=== PATIENT | female | born 1965 | race African-American/Black ===

== ENCOUNTER 2018-04-24 12:37 | Observation (INO) | payer OTHER ==
[2018-04-24] MEDS ORDERED: ASPIRIN 81 MG TABLET, CHEWABLE PO ONE (13:07)
--- NOTE | 2018-04-24 13:31 | RADIOLOGY REPORT (SQ) ---
EXAM DESCRIPTION: CHEST 2 VIEWS COMPLETED DATE/TIME: 04/24/2018 1:22 pm REASON FOR STUDY: Chest pain COMPARISON: None. EXAM PARAMETERS: NUMBER OF VIEWS: two views TECHNIQUE: Digital Frontal and Lateral radiographic views of the chest acquired. RADIATION DOSE: NA LIMITATIONS: none FINDINGS: LUNGS AND PLEURA: No opacities, masses or pneumothorax. No pleural effusion. MEDIASTINUM AND HILAR STRUCTURES: No masses or contour abnormalities. HEART AND VASCULAR STRUCTURES: Heart normal size. No evidence for failure. BONES: No acute findings. HARDWARE: None in the chest. OTHER: No other significant finding. IMPRESSION: NO ACUTE RADIOGRAPHIC FINDING IN THE CHEST. TECHNICAL DOCUMENTATION: JOB ID: [id number] [employer]- All Rights Reserved Reading location - IP/workstation name: [email or web address]
[2018-04-24 13:39] LABS: ABSOLUTE BASOPHILS # (AUTO) 0.1 10^3/uL (0.0-0.2); ABSOLUTE EOSINOPHILS # (AUTO) 0.1 10^3/uL (0.0-0.6); ABSOLUTE LYMPHOCYTES (AUTO) 2.6 10^3/uL (0.5-4.7); ABSOLUTE MONOCYTES (AUTO) 0.5 10^3/uL (0.1-1.4); ABSOLUTE NEUT (AUTO) 4.4 10^3/uL (1.7-8.2); EOSINOPHILS % (AUTO) 1.9 % (0-6); HEMATOCRIT 37.7 % (36.0-47.0); LYMPHOCYTES % (AUTO) 33.4 % (13-45); MEAN CORPUSCULAR HEMOGLOBIN 28.5 pg (27.0-33.4); MEAN CORPUSCULAR HGB CONC 34.4 g/dL (32.0-36.0); MEAN CORPUSCULAR VOLUME 83 fl (80-97); MONOCYTES % (AUTO) 6.2 % (3-13); PLATELET COUNT 250 10^3/uL (150-450); RED BLOOD COUNT 4.55 10^6/uL (3.72-5.28); RED CELL DISTRIBUTION WIDTH 13.4 % (11.5-14.0); SEGMENTED NEUTROPHILS % (AUTO) 57.5 % (42-78); TOTAL CELLS COUNTED % (AUTO) 100 %; WHITE BLOOD COUNT 7.6 10^3/uL (4.0-10.5)
[2018-04-24 14:02] LABS: ALANINE AMINOTRANSFERASE 26 U/L (9-52); ALBUMIN 4.5 g/dL (3.5-5.0); ALKALINE PHOSPHATASE 66 U/L (38-126); ANION GAP 9 (5-19); ASPARTATE AMINO TRANSFERASE 22 U/L (14-36); BILIRUBIN,DIRECT 0.1 mg/dL (0.0-0.4); BILIRUBIN,TOTAL 0.5 mg/dL (0.2-1.3); BLOOD UREA NITROGEN 14 mg/dL (7-20); CALCIUM 10.7 mg/dL (8.4-10.2); CARBON DIOXIDE 30 mmol/L (22-30); CHLORIDE 101 mmol/L (98-107); CREATINE KINASE 99 U/L (30-135); GLUCOSE 111 mg/dL (75-110); POTASSIUM 3.7 mmol/L (3.6-5.0); SODIUM 139.5 mmol/L (137-145); TOTAL PROTEIN 7.5 g/dL (6.3-8.2)
[2018-04-24 14:14] LABS: CREATINE KINASE MB 1.29 ng/mL (<4.55)
[2018-04-24 14:18] LABS: TROPONIN I < 0.012 ng/mL
[2018-04-24] MEDS ORDERED: NITROGLYCERIN 5 MG (0.2 MG/HR) PATCH.TD24 TD ONE (15:46)
--- NOTE | 2018-04-24 15:53 | ER Document Report ---
ED Cardiac - General Chief Complaint: Chest Pain Stated Complaint: CHEST PAIN Time Seen by Provider: 04/24/18 12:54 Mode of Arrival: Ambulatory Information source: Patient TRAVEL OUTSIDE OF THE [place] IN LAST 30 DAYS: No - HPI Patient complains to provider of: Chest pain, Shortness of breath Was the onset of pain: Gradual Is the pain a: New problem Chest pain location: Substernal, Under breast - left breast Quality of pain: Achy, Dull Chest pain radiation location: Left arm, Left shoulder, Back, Neck - left neck Severity now: Moderate Severity at worst: Severe Pain level currently: 2 Chest pain precipitating factors: None Cardiac risk factors: None Positive cardiac history: No Associated symptoms: Shortness of breath Exacerbated by: Denies Relieved by: Nothing Similar symptoms previously: No Recently seen / treated by doctor: No - Related Data Allergies/Adverse Reactions: Sulfa (Sulfonamide Antibiotics) Adverse Reaction (Verified 04/24/18 12:59) Past Medical History - Social History Smoking Status: Never Smoker Frequency of alcohol use: None Drug Abuse: None Family History: Reviewed & Not Pertinent Patient has suicidal ideation: No Patient has homicidal ideation: No Renal/ Medical History: Denies: Hx Peritoneal Dialysis Past Surgical History: Reports: Hx Cholecystectomy, Hx Hysterectomy Review of Systems - Review of Systems Constitutional: No symptoms reported EENT: No symptoms reported Cardiovascular: Chest pain Respiratory: Short of breath Gastrointestinal: No symptoms reported Genitourinary: No symptoms reported Female Genitourinary: No symptoms reported Musculoskeletal: No symptoms reported Skin: No symptoms reported Hematologic/Lymphatic: No symptoms reported Neurological/Psychological: No symptoms reported -: Yes All other systems reviewed and negative Physical Exam - Vital signs Vitals: Temp Pulse BP Pulse Ox 97.8 F 71 164/90 H 100 04/24/18 12:50 04/24/18 12:50 04/24/18 12:50 04/24/18 12:50 Interpretation: Normal - General General appearance: Appears well, Alert, Other - Obese In distress: None - HEENT Head: Normocephalic, Atraumatic Eyes: Normal Pupils: PERRL - Respiratory Respiratory status: No respiratory distress Chest status: Nontender Breath sounds: Normal Chest palpation: Normal - Cardiovascular Rhythm: Regular Heart sounds: Normal auscultation Murmur: No - Abdominal Inspection: Normal Distension: No distension Bowel sounds: Normal Tenderness: Nontender Organomegaly: No organomegaly - Back Back: Normal, Nontender - Extremities General upper extremity: Normal inspection, Nontender, Normal color, Normal ROM, Normal temperature General lower extremity: Normal inspection, Nontender, Normal color, Normal ROM, Normal temperature, Normal weight bearing. No: Cheryl's sign - Neurological Neuro grossly intact: Yes Cognition: Normal Orientation: AAOx4 Mohsen Coma Scale Eye Opening: Spontaneous Mohsen Coma Scale Verbal: Oriented Stanley Coma Scale Motor: Obeys Commands Stanley Coma Scale Total: 15 Speech: Normal Motor strength normal: LUE, RUE, LLE, RLE Sensory: Normal - Psychological Associated symptoms: Normal affect, Normal mood - Skin Skin Temperature: Warm Skin Moisture: Dry Skin Color: Normal Course - Vital Signs Vital signs: Temp Pulse Resp BP Pulse Ox 98.7 F 71 16 132/77 H 100 04/24/18 18:51 04/24/18 12:50 04/24/18 20:01 04/24/18 20:01 04/24/18 20:01 - Laboratory Result Diagrams: 04/24/18 13:10 04/24/18 13:10 Laboratory results interpreted by me: 04/24/18 13:10 Glucose 111 H Calcium 10.7 H - Diagnostic Test Radiology reviewed: Reports reviewed - EKG Interpretation by De EKG shows normal: Sinus rhythm Rate: Normal - 63 Rhythm: NSR When compared to previous EKG there are: Previous EKG unavailable Additional EKG results interpreted by me: 04/24/18 15:50 Diffused nonspecific T wave abnormalities. No STEMI. - Transfer of Care Notes: 04/24/18 17:55 Patient was admitted by Dr. Hoffman for further management in the hospital. Discharge - Discharge Clinical Impression: Chest pain Qualifiers: Chest pain type: unspecified Qualified Code(s): R07.9 - Chest pain, unspecified Condition: Stable Disposition: ADMITTED INPATIENT Admitting Provider: Hospitalist Unit Admitted: Telemetry
[2018-04-24 15:56] LABS: INTERNATIONAL RATION (INR) 0.89; PARTIAL THROMBOPLASTIN TIME 29.7 SEC (23.5-35.8); PROTHROMBIN TIME 12.5 SEC (11.4-15.4)
--- NOTE | 2018-04-24 18:00 | EKG REPORT ---
SEVERITY:- BORDERLINE ECG - SINUS RHYTHM BORDERLINE T ABNORMALITIES, INFERIOR LEADS : Confirmed by: Corey Foreman MD 24-Apr-2018 17:59:38
[2018-04-24] MEDS ORDERED: ONDANSETRON HCL INJ/PF 4 MG/2 ML SDV IV PRN (18:23)
[2018-04-24] MEDS ORDERED: ACETAMINOPHEN 325 MG TABLET PO PRN (18:23)
[2018-04-24] MEDS ORDERED: MORPHINE SULFATE 10 MG/ML INJ IV PRN (18:31)
--- NOTE | 2018-04-24 18:52 | PDOC H&P ---
History of Present Illness Admission Date/PCP: 04/24/18 18:10 Patient complains of: Chest pain History of Present Illness: FIFI BARTH is a 52 year old female with history of obesity no other medical problems came to the emergency room with complaints of left-sided chest pain for the last 4 days. She is basically complaining of pain in her armpit gotten worse today when she came to the emergency room it was 10 x 10 at the time of examination she is single 7 x 10. She is also complaining of numbness of the left hand. According to her chest pain is like a pressure-like pain associated with mild shortness of breath and mild wheezing. Denies any headaches denies any dizzy spells. Denies any previous history of chest pains. in the emergency room to troponins came back negative. EKG negative for acute changes in the ER Past Medical History Cardiac Medical History: Reports: None Pulmonary Medical History: Reports: None EENT Medical History: Reports: None Neurological Medical History: Reports: None Endocrine Medical History: Reports: None Renal/ Medical History: Reports: None Malignancy Medical History: Reports: None GI Medical History: Reports: None Musculoskeltal Medical History: Reports: None Skin Medical History: Reports: None Psychiatric Medical History: Reports: None Traumatic Medical History: Reports: None Hematology: Reports: None Infectious Medical History: Reports: None Past Surgical History Past Surgical History: Reports: Cholecystectomy, Hysterectomy Social History Smoking Status: Never Smoker Frequency of Alcohol Use: Social Hx Recreational Drug Use: No Drugs: None - Advance Directive Resuscitation Status: Full Code Family History Parental Family History Reviewed: Yes - Mother lung cancer grandmother hypertension diabetes Children Family History Reviewed: Yes Sibling(s) Family History Reviewed.: Yes Medication/Allergy Home Medications: No Home Medications 04/24/18 Allergies/Adverse Reactions: Sulfa (Sulfonamide Antibiotics) Adverse Reaction (Verified 04/24/18 12:59) Review of Systems Constitutional: PRESENT: weakness. ABSENT: chills, fatigue, fever(s), headache(s) Eyes: ABSENT: visual disturbances Ears: ABSENT: hearing changes Nose, Mouth, and Throat: ABSENT: sore throat Cardiovascular: PRESENT: chest pain. ABSENT: dyspnea on exertion, edema, orthropnea, palpitations Respiratory: PRESENT: dyspnea. ABSENT: hemoptysis Gastrointestinal: ABSENT: diarrhea, dysphagia, heartburn, melena, nausea, vomiting Genitourinary: ABSENT: dysuria Musculoskeletal: ABSENT: joint swelling Integumentary: ABSENT: rash, wounds Neurological: PRESENT: other - Complaining of numbness in the left hand Psychiatric: ABSENT: anxiety, depression, homidical ideation, suicidal ideation Physical Exam Vital Signs: Temp Pulse Resp BP Pulse Ox 97.8 F 71 14 136/89 H 100 04/24/18 12:50 04/24/18 12:50 04/24/18 18:01 04/24/18 18:01 04/24/18 18:01 Intake & Output 04/23/18 04/24/18 04/25/18 06:59 06:59 06:59 Weight 99 kg General appearance: PRESENT: no acute distress, obese Head exam: PRESENT: atraumatic Eye exam: PRESENT: PERRLA Mouth exam: PRESENT: moist, tongue midline Teeth exam: PRESENT: poor dentation Neck exam: ABSENT: carotid bruit, JVD, lymphadenopathy, thyromegaly Respiratory exam: PRESENT: clear to auscultation ramirez. ABSENT: rales, rhonchi, wheezes Cardiovascular exam: PRESENT: RRR. ABSENT: diastolic murmur, rubs, systolic murmur GI/Abdominal exam: PRESENT: normal bowel sounds, soft. ABSENT: distended, guarding, mass, organolmegaly, rebound, tenderness Extremities exam: PRESENT: full ROM. ABSENT: calf tenderness, clubbing, pedal edema Neurological exam: PRESENT: alert, awake, oriented to person, oriented to place, oriented to time, oriented to situation, CN II-XII grossly intact. ABSENT: motor sensory deficit Psychiatric exam: PRESENT: appropriate affect, normal mood. ABSENT: homicidal ideation, suicidal ideation Results Laboratory Results: 04/24/18 13:10 04/24/18 13:10 04/24/18 04/24/18 13:10 13:10 WBC 7.6 RBC 4.55 Hgb 13.0 Hct 37.7 MCV 83 MCH 28.5 MCHC 34.4 RDW 13.4 Plt Count 250 Seg Neutrophils % 57.5 Lymphocytes % 33.4 Monocytes % 6.2 Eosinophils % 1.9 Basophils % 1.0 Absolute Neutrophils 4.4 Absolute Lymphocytes 2.6 Absolute Monocytes 0.5 Absolute Eosinophils 0.1 Absolute Basophils 0.1 Sodium 139.5 Potassium 3.7 Chloride 101 Carbon Dioxide 30 Anion Gap 9 BUN 14 Creatinine 0.59 Est GFR ( Amer) > 60 Est GFR (Non-Af Amer) > 60 Glucose 111 H Calcium 10.7 H Total Bilirubin 0.5 AST 22 ALT 26 Alkaline Phosphatase 66 Total Protein 7.5 Albumin 4.5 04/24/18 04/24/18 04/24/18 13:10 13:10 16:39 Creatine Kinase 99 CK-MB (CK-2) 1.29 Troponin I < 0.012 < 0.012 Impressions: Chest X-Ray 04/24/18 13:08 IMPRESSION: NO ACUTE RADIOGRAPHIC FINDING IN THE CHEST. Assessment & Plan - Diagnosis (1) Chest pain Qualifiers: Chest pain type: unspecified Qualified Code(s): R07.9 - Chest pain, unspecified Is this a current diagnosis for this admission?: Yes Plan: 04/24/2018-plan to put the patient in telemetry under observation stress test was requested for tomorrow. Started on aspirin 3-5 mg p.o. daily atorvastatin 20 mg p.o. nightly, cardiac enzymes x3 requested. Lipid panel was requested for tomorrow morning. Placed on oxygen 2 L nasal cannula also start her on IV morphine 2 mg every 4 as needed for chest pains. She is going to be on DVT prophylaxis with Lovenox 40 mg subcu daily. For the chest pain plan to do the CT of the chest rule out PE. (2) Obesity (BMI 30-39.9) Is this a current diagnosis for this admission?: Yes Plan: 04/24/2018-patient's BMI is more than 40 diet exercise weight loss lifestyle modifications are discussed with the patient. Dietary consult was requested. - Time Time Spent: 50 to 70 Minutes Medications reviewed and adjusted accordingly: Yes Anticipated discharge: Home
--- NOTE | 2018-04-24 19:30 | EKG REPORT ---
SEVERITY:- ABNORMAL ECG - SINUS RHYTHM NONSPECIFIC T ABNORMALITIES, DIFFUSE LEADS : Confirmed by: Corey Foreman MD 24-Apr-2018 19:29:52
[2018-04-24 20:06] LABS: CREATINE KINASE MB 1.09 ng/mL (<4.55)
[2018-04-24 20:15] LABS: TROPONIN I < 0.012 ng/mL
--- NOTE | 2018-04-24 20:47 | RADIOLOGY REPORT (SQ) ---
CT HEAD WITHOUT IV CONTRAST HISTORY: Numbness. COMPARISON: None. TECHNIQUE: CT scan of the brain without IV contrast. This exam was performed according to our departmental dose-optimization program, which includes automated exposure control, adjustment of the mA and/or kV according to patient size and/or use of iterative reconstruction technique. FINDINGS: The ventricles, cisterns, and sulci are unremarkable. No focal white matter lesions are seen. No evidence of acute infarction, intracranial hemorrhage, extra-axial fluid collection, or midline shift. No air-fluid levels are seen in the paranasal sinuses to suggest acute sinusitis. No depressed skull fracture. IMPRESSION: No acute intracranial findings.
--- NOTE | 2018-04-24 20:57 | RADIOLOGY REPORT (SQ) ---
CT CHEST ANGIOGRAPHY WITHOUT THEN WITH IV CONTRAST HISTORY: Shortness of breath. COMPARISON: None. TECHNIQUE: CT angiogram of the chest with IV contrast. 3-D MIP images were obtained in coronal and sagittal reconstructions. This exam was performed according to our departmental dose-optimization program, which includes automated exposure control, adjustment of the mA and/or kV according to patient size and/or use of iterative reconstruction technique. FINDINGS: No filling defects are identified in the pulmonary trunk, main left and right pulmonary arteries, or the segmental branches. No aortic aneurysm or dissection is seen. The thyroid gland is normal. No mediastinal or hilar adenopathy. The heart size is normal without pericardial effusion. No consolidation, pleural effusion, or pneumothorax is identified. The visualized upper abdomen demonstrates a small hiatal hernia but no acute findings. The osseous structures are intact. IMPRESSION: No acute pulmonary embolism.
[2018-04-24] MEDS ORDERED: ATORVASTATIN CALCIUM 20 MG TABLET PO SCH (22:00)
[2018-04-24] MEDS: FAMOTIDINE 20 MG TABLET PO SCH (22:36)
[2018-04-24] MEDS: OXYCODONE-ACETAMINOPHEN 5-325 MG TABLET PO PRN (22:39)
[2018-04-25 02:10] LABS: CREATINE KINASE MB 0.91 ng/mL (<4.55); TROPONIN I < 0.012 ng/mL
[2018-04-25 07:03] LABS: ABSOLUTE EOSINOPHILS # (AUTO) 0.3 10^3/uL (0.0-0.6); ABSOLUTE LYMPHOCYTES (AUTO) 2.7 10^3/uL (0.5-4.7); ABSOLUTE MONOCYTES (AUTO) 0.6 10^3/uL (0.1-1.4); ABSOLUTE NEUT (AUTO) 4.2 10^3/uL (1.7-8.2); BASOPHILS % (AUTO) 0.6 % (0-2); EOSINOPHILS % (AUTO) 3.5 % (0-6); HEMATOCRIT 33.6 % (36.0-47.0); HEMOGLOBIN 11.8 g/dL (12.0-15.5); MEAN CORPUSCULAR HEMOGLOBIN 29.2 pg (27.0-33.4); MEAN CORPUSCULAR HGB CONC 35.1 g/dL (32.0-36.0); MEAN CORPUSCULAR VOLUME 83 fl (80-97); MONOCYTES % (AUTO) 7.5 % (3-13); PLATELET COUNT 237 10^3/uL (150-450); RED BLOOD COUNT 4.05 10^6/uL (3.72-5.28); RED CELL DISTRIBUTION WIDTH 12.8 % (11.5-14.0); SEGMENTED NEUTROPHILS % (AUTO) 53.4 % (42-78); TOTAL CELLS COUNTED % (AUTO) 100 %; WHITE BLOOD COUNT 7.8 10^3/uL (4.0-10.5)
[2018-04-25 07:29] LABS: ALANINE AMINOTRANSFERASE 22 U/L (9-52); ALKALINE PHOSPHATASE 56 U/L (38-126); ANION GAP 7 (5-19); ASPARTATE AMINO TRANSFERASE 18 U/L (14-36); BILIRUBIN,DIRECT 0.2 mg/dL (0.0-0.4); BILIRUBIN,TOTAL 0.4 mg/dL (0.2-1.3); BLOOD UREA NITROGEN 16 mg/dL (7-20); CALCIUM 10.5 mg/dL (8.4-10.2); CARBON DIOXIDE 30 mmol/L (22-30); CHLORIDE 101 mmol/L (98-107); CHOLESTEROL 225.23 mg/dL (0-200); CREATINE KINASE 71 U/L (30-135); GLUCOSE 134 mg/dL (75-110); POTASSIUM 4.1 mmol/L (3.6-5.0); SODIUM 138.3 mmol/L (137-145); TOTAL PROTEIN 6.4 g/dL (6.3-8.2); TRIGLYCERIDES 107 mg/dL (<150)
[2018-04-25 07:40] LABS: DIRECT LDL 117 mg/dL (<100)
[2018-04-25 07:43] LABS: CREATINE KINASE MB 0.84 ng/mL (<4.55); NT PRO BNP 39 pg/mL (5-900)
[2018-04-25 07:46] LABS: SALICYLATE < 1.0 mg/dL (2.0-20.0)
[2018-04-25 07:49] LABS: TROPONIN I < 0.012 ng/mL
[2018-04-25] MEDS: FAMOTIDINE 20 MG TABLET PO SCH (10:00)
[2018-04-25] MEDS ORDERED: ENOXAPARIN SODIUM INJ 40 MG/0.4 ML DISP.SYRIN SUBCUT SCH (10:00)
[2018-04-25] MEDS ORDERED: REGADENOSON INJ 0.4 MG/5 ML DISP.SYRIN IV ONE (11:32)
[2018-04-25] MEDS: LEVOTHYROXINE SODIUM 0.075 MG TABLET PO ONE ×2 (14:14→16:28)
--- NOTE | 2018-04-25 14:15 | RADIOLOGY REPORT (SQ) ---
EXAM DESCRIPTION: MRI HEAD WITHOUT COMPLETED DATE/TIME: 04/25/2018 1:55 pm REASON FOR STUDY: r/o strike left-sided weakness and numbness COMPARISON: CT brain 04/24/2018 TECHNIQUE: Multiplanar imaging includes non-contrasted T1, T2, FLAIR, and diffusion with ADC map seq uences. Images stored on PACS. LIMITATIONS: None. FINDINGS: ANATOMY: No developmental anomalies. Normal vascular flow voids. Pituitary fossa normal. CSF SPACES: Normal in size and contour. No hemorrhage. CEREBRUM: Sulci and gyri normal in size and contour. Normal white matter signal on FLAIR imaging. No evidence of hemorrhage, mass, or extraaxial fluid collection. POSTERIOR FOSSA: No signal alteration. No hemorrhage. No edema, masses or mass effect. Internal nasra tory canals, cerebello-pontine angles, mastoids normal. DIFFUSION IMAGING: Negative for acute or sub-acute infarction. ORBITS: No masses. Globes normal. PARANASAL SINUSES: No fluid levels. Mucosa normal. OTHER: No other significant finding. IMPRESSION: NORMAL MRI OF THE BRAIN WITHOUT INTRAVENOUS GADOLINIUM CONTRAST. EVIDENCE OF ACUTE STROKE: NO. TECHNICAL DOCUMENTATION: JOB ID: [id number] [employer]- All Rights Reserved Reading location - IP/workstation name: [email or web address]
[2018-04-25] MEDS: OXYCODONE-ACETAMINOPHEN 5-325 MG TABLET PO PRN (14:21)
--- NOTE | 2018-04-25 14:48 | PDOC DISCHARGE SUMMARY ---
General - Admit/Disc Date/PCP Admission Date/Primary Care Provider: 04/24/18 18:10 Discharge Date: 04/17/18 - Discharge Diagnosis (1) Chest pain Is this a current diagnosis for this admission?: Yes Summary: 04/24/2018-plan to put the patient in telemetry under observation stress test was requested for tomorrow. Started on aspirin 3-5 mg p.o. daily atorvastatin 20 mg p.o. nightly, cardiac enzymes x3 requested. Lipid panel was requested for tomorrow morning. Placed on oxygen 2 L nasal cannula also start her on IV morphine 2 mg every 4 as needed for chest pains. She is going to be on DVT prophylaxis with Lovenox 40 mg subcu daily. For the chest pain plan to do the CT of the chest rule out PE. 04/25/2018 patient was admitted for chest pain stress test was negative. Cardiac enzymes are negative. EKGs are negative for acute changes. Patient was giving the prescription for aspirin and atorvastatin advised her to follow-up with Dr. Redding in 3-5 days. (2) Obesity (BMI 30-39.9) Is this a current diagnosis for this admission?: Yes Summary: 04/24/2018-patient's BMI is more than 40 diet exercise weight loss lifestyle modifications are discussed with the patient. Dietary consult was requested. 04/25/2018-patient BMI is more than 40 again diet, exercise, lifestyle modifications was advised. (3) Hypothyroidism Is this a current diagnosis for this admission?: Yes Summary: 04/25/2018-TSH levels came back at 16.90. Patient was started on levothyroxine 25 mcg p.o. daily. Prescription was given. Compliance medications advised. She is going home today. - Additional Information Resuscitation Status: Full Code Discharge Diet: Cardiac Discharge Activity: Activity As Tolerated Prescriptions: Acetaminophen [Tylenol 325 mg Tablet] 650 mg PO Q4HP PRN #30 tablet PRN Reason: Atorvastatin Calcium [Lipitor 20 mg Tablet] 20 mg PO QHS #30 tablet Levothyroxine Sodium 0.25 gm MC DAILY #30 powder Home Medications: Acetaminophen [Tylenol 325 mg Tablet] 650 mg PO Q4HP PRN #30 tablet 04/25/18 Atorvastatin Calcium [Lipitor 20 mg Tablet] 20 mg PO QHS #30 tablet 04/25/18 Levothyroxine Sodium 0.25 gm MC DAILY #30 powder 04/25/18 History of Present Illness History of Present Illness: FIFI BARTH is a 52 year old female with history of obesity no other medical problems came to the emergency room with complaints of left-sided chest pain for the last 4 days. She is basically complaining of pain in her armpit gotten worse today when she came to the emergency room it was 10 x 10 at the time of examination she is single 7 x 10. She is also complaining of numbness of the left hand. According to her chest pain is like a pressure-like pain associated with mild shortness of breath and mild wheezing. Denies any headaches denies any dizzy spells. Denies any previous history of chest pains. in the emergency room to troponins came back negative. EKG negative for acute changes in the ER Physical Exam Vital Signs: Temp Pulse Resp BP Pulse Ox 98.0 F 65 16 146/79 H 100 04/25/18 12:01 04/25/18 12:01 04/25/18 12:01 04/25/18 12:01 04/25/18 12:01 Intake & Output 04/24/18 04/25/18 04/26/18 06:59 06:59 06:59 Intake Total 222 Output Total 200 Balance 22 Weight 99 kg General appearance: PRESENT: no acute distress Head exam: PRESENT: atraumatic Eye exam: PRESENT: PERRLA Mouth exam: PRESENT: moist, tongue midline Neck exam: ABSENT: carotid bruit, JVD, lymphadenopathy, thyromegaly Respiratory exam: PRESENT: clear to auscultation ramirez. ABSENT: rales, rhonchi, wheezes Cardiovascular exam: PRESENT: RRR. ABSENT: diastolic murmur, rubs, systolic m urmur GI/Abdominal exam: PRESENT: normal bowel sounds, soft. ABSENT: distended, guarding, mass, organolmegaly, rebound, tenderness Extremities exam: PRESENT: full ROM. ABSENT: calf tenderness, clubbing, pedal edema Neurological exam: PRESENT: alert, awake, oriented to person, oriented to place, oriented to time, oriented to situation, CN II-XII grossly intact. ABSENT: motor sensory deficit Psychiatric exam: PRESENT: appropriate affect, normal mood. ABSENT: homicidal ideation, suicidal ideation Results Laboratory Results: 04/25/18 06:36 04/25/18 06:36 04/25/18 04/25/18 04/25/18 06:36 06:36 06:36 WBC 7.8 RBC 4.05 Hgb 11.8 L Hct 33.6 L MCV 83 MCH 29.2 MCHC 35.1 RDW 12.8 Plt Count 237 Seg Neutrophils % 53.4 Lymphocytes % 35.0 Monocytes % 7.5 Eosinophils % 3.5 Basophils % 0.6 Absolute Neutrophils 4.2 Absolute Lymphocytes 2.7 Absolute Monocytes 0.6 Absolute Eosinophils 0.3 Absolute Basophils 0.0 Sodium 138.3 Potassium 4.1 Chloride 101 Carbon Dioxide 30 Anion Gap 7 BUN 16 Creatinine 0.79 Est GFR ( Amer) > 60 Est GFR (Non-Af Amer) > 60 Glucose 134 H Calcium 10.5 H Magnesium 1.7 Total Bilirubin 0.4 AST 18 ALT 22 Alkaline Phosphatase 56 Total Protein 6.4 Albumin 4.0 Triglycerides 107 Cholesterol 225.23 H LDL Cholesterol Direct 117 H VLDL Cholesterol 21.0 HDL Cholesterol 76 TSH 16.90 H 04/24/18 04/24/18 04/24/18 13:10 13:10 16:39 Creatine Kinase 99 CK-MB (CK-2) 1.29 Troponin I < 0.012 < 0.012 NT-Pro-B Natriuret Pep 04/24/18 04/24/18 04/25/18 19:20 19:20 01:12 Creatine Kinase 82 76 CK-MB (CK-2) 1.09 Troponin I < 0.012 NT-Pro-B Natriuret Pep 04/25/18 04/25/18 04/25/18 01:12 06:36 06:36 Creatine Kinase 71 CK-MB (CK-2) 0.91 0.84 Troponin I < 0.012 < 0.012 NT-Pro-B Natriuret Pep 39 Impressions: Chest/Abdomen CTA 04/24/18 00:00 IMPRESSION: No acute pulmonary embolism. Head CT 04/24/18 00:00 IMPRESSION: No acute intracranial findings. Chest X-Ray 04/24/18 13:08 IMPRESSION: NO ACUTE RADIOGRAPHIC FINDING IN THE CHEST. Head MRI 04/25/18 00:00 IMPRESSION: NORMAL MRI OF THE BRAIN WITHOUT INTRAVENOUS GADOLINIUM CONTRAST. EVIDENCE OF ACUTE STROKE: NO. Qualifiers - * PATIENT BEING DISCHARGED WITH ANY OF THE FOLLOWING DIAGNOSIS: No VTE patient discharged on overlapping Therapy?: No
[2018-04-25] MEDS ORDERED: LEVOTHYROXINE SODIUM 0.075 MG TABLET PO ONE (15:00)
[2018-04-25] MEDS ORDERED: DIPHENHYDRAMINE HCL 25 MG CAPSULE PO ONE (15:05)
[2018-04-25 20:00] VITALS: BP 133/71
--- NOTE | 2018-04-26 11:31 | DRAGON STRESS TEST REPORT ---
Intravenous Lexiscan Cardiolite stress test using single photon emmision computerized tomography. Date of procedure: 04/25/2018. Ordering Provider: . Patient's status: Inpatient Indication: Chest pain. Coronary risk factors: Age, and dyslipidemia. Resting EKG: Sinus Rhythm. Nonspecific T changes leads V3 to V6. Stress EKG: No changes of ischemia. The patient had no chest pain or discomfort, and there were no arrhythmias seen. Reason for termination: Protocol. Conclusions: Normal EKG and hemodynamic response to IV Lexiscan. Nuclear data: At rest the patient was given 14.19 millicuries of technetium 99m sestamibi injected intravenously. As per protocol rest non gated SPECT images were obtained. Subsequently the patient was given intravenous Lexiscan at a dose of 0.4 mg in 5 mL intravenously, followed by flush with normal saline. Subsequently the stress dose of 41.8 millicuries of technetium 99m sestamibi was injected intravenously. As per protocol stress gated images were obtained. Nuclear interpretation: Review of images showed that all segments of the myocardium had normal perfusion at rest, and normal perfusion post stress with IV Lexiscan. All segments of the myocardium had normal motion, contraction, and thickening by gated study. T. I D. ratio was normal at 0.83. There is no transient ischemic dilatation of the left ventricle. Computer read rest, and stress left ventricular ejection fraction were 50 %, and 59 %, respectively. Visually both the stress and rest ejection fractions were normal, and greater than 60 %. Conclusion: 1. There is no scintigraphic evidence of Lexiscan induced myocardial ischemia. 2. There is no scintigraphic evidence of myocardial infarction/scar. Recommendations: Aggressive risk factor modification, and treating the underlying co- morbidities. [facility]
== END 2018-04-25 20:52 | disposition home or self-care (01) ==
LOC: ER 12:37 → EH 18:10 → INTOOBSV 18:10 → 5 20:47
PROVIDERS: ADMIT Internal Medicine; ATTEND Internal Medicine
DX: R07.89 Other chest pain (principal); R20.0 Anesthesia of skin; E66.9 Obesity, unspecified; Z68.39 Body mass index [BMI] 39.0-39.9, adult; E03.9 Hypothyroidism, unspecified; M79.629 Pain in unspecified upper arm; R53.1 Weakness; R06.2 Wheezing; R06.00 Dyspnea, unspecified; Z90.49 Acquired absence of other specified parts of digestive tract; Z82.49 Family history of ischemic heart disease and other diseases of the circulatory system; Z80.1 Family history of malignant neoplasm of trachea, bronchus and lung
CPT/HCPCS: 36415; 70450; 70551; 71046; 71275; 78452; 80053; 80061; 80307; 82550; 82553; 83036; 83735; 83880; 84443; 84484; 85025; 85379; 85610; 85730; 93005; 93010; 93017; 99285; A9500; G0378; J2270; J2405; J2785; J3490